=== PATIENT | male | born 2000 | race Two or more races ===

== ENCOUNTER 2024-07-06 14:48 | Emergency (ER) | payer MEDICAID, OTHER ==
[~2024-07-06] VITALS: Ht 185.4 cm; Wt 200.0 kg
[2024-07-06] MEDS: IBUPROFEN 600 MG TAB PO ONE (15:30)
[2024-07-06] MEDS: ACETAMINOPHEN 325 MG TAB PO ONE (15:30)
[2024-07-06] MEDS: SODIUM CHLORIDE 0.9% 2,400 ML IV ONE (16:13)
[2024-07-06] MEDS: cefTRIAXone 1GM/50ML D5W 50 ML IV SCH (16:45)
[2024-07-06 17:22] VITALS: PULSE 110; RESP 18; O2SAT 95
[2024-07-06 17:25] LABS: Alanine Aminotransferase 14 U/L (7-40); Alkaline Phosphatase 81 U/L (46-116); Calcium 9.5 mg/dL (8.7-10.4); Carbon Dioxide 24 mmol/L (20-30); Chloride 101 mmol/L (98-107)
[2024-07-06 17:26] LABS: Albumin 4.1 g/dL (3.2-4.8); Anion Gap 6 (5-15); Aspartate Aminotransferase 20 U/L (13-40); BUN/Creatinine Ratio 8.9 (10.0-20.0); Blood Urea Nitrogen 10 mg/dL (9-23); Glucose 126 mg/dL (74-106); Potassium 4.1 mmol/L (3.5-5.1); Sodium 131 mmol/L (136-145); Total Protein 8.6 g/dL (5.7-8.2)
[2024-07-06 17:27] LABS: Hematocrit 40.8 % (41.0-53.0); Hemoglobin 13.5 g/dL (13.5-17.5); Mean Corpuscular Hemoglobin 27.6 pg (28.0-32.0); Mean Corpuscular Volume 83.5 fL (80.0-100.0); Platelet Count (auto) 218 10^3/uL (140-450); Red Blood Cells 4.89 10^6/uL (4.5-5.90); Red Cell Distribution Width 15.2 % (11.8-14.3); White Blood Cell 27.6 10^3/uL (4.4-10.8)
[2024-07-06 17:29] LABS: Basophils % (manual) 0 (0.0-2.0); Blast Cells 0; Eosinophils % (manual) 0 (0-7); Metamyelocytes % 0; Myelocytes % 0; Promyelocytes % 0; Reactive Lymphocytes 0
[2024-07-06 17:41] LABS: INR 1.13 (0.9-1.15); Partial Thromboplastin Time 30.6 SEC (24.5-34.5); Prothrombin Time 11.9 sec (9.3-11.8)
[2024-07-06 19:01] LABS: Urine Bacteria None Seen /hpf (None Seen)
[2024-07-06 19:20] LABS: Urine Blood 3+ /uL (Negative); Urine Clarity Turbid (Clear); Urine Color Yellow (Yellow); Urine Protein, UAD 2+ (Negative); Urine Specific Gravity 1.016 (1.001-1.035); Urine Urobilinogen Normal (Negative); Urine WBC 7 /hpf (0 - 3)
[2024-07-06 19:30] VITALS: PULSE 102; RESP 14; O2SAT 95
[2024-07-06 19:36] LABS: Band Neutrophils % (manual) 15; Lymphocytes % (manual) 5 (10.0-50.0); Monocytes % (manual) 8 (0-12); Platelet Estimate Adequate
[2024-07-06 21:26] LABS: COVID19 ANTIGEN SOFIA FIA NEGATIVE (NEGATIVE)
[2024-07-06] MEDS: ONDANSETRON HCL 4 MG/2 ML VIAL IV ONE (21:30)
[2024-07-06] MEDS: MORPHINE SULFATE INJ 2 MG/ml SYRG IV ONE (21:31)
[2024-07-06] MEDS: ACETAMINOPHEN 325 MG TAB PO PRN (21:43)
[2024-07-06 23:03] VITALS: BP 140/75; PULSE 115; RESP 20; TEMP 99.8; O2SAT 96
== END 2024-07-06 23:08 | disposition short-term general hospital (02) ==
LOC: EDBD 14:48 → ER 14:48
DX: A41.9 Sepsis, unspecified organism (principal); R65.21 Severe sepsis with septic shock; L03.116 Cellulitis of left lower limb; Z20.822 Contact with and (suspected) exposure to COVID-19
CPT/HCPCS: 36415; 71045; 80053; 81001; 83605; 83615; 85007; 85027; 85610; 85730; 87040; 87086; 87426; 96361; 96365; 96375; 99291; J0696; J2270; J2405; J7030